=== PATIENT | male | born 1995 | race Caucasian/White ===

== ENCOUNTER 2021-06-25 15:16 | Emergency (ER) | payer BC, SELFPAY ==
[2021-06-25 15:19] VITALS: BP 112/68; PULSE 80; RESP 16; TEMP 36.7; O2SAT 98; BMI 23.6
--- NOTE | 2021-06-25 15:36 | ED.MALEGU ---
HPI - Male Genitourinary General Chief complaint: Urogenital-Male Stated complaint: possible STD Time Seen by Provider: 06/25/21 15:25 Source: patient Mode of arrival: ambulatory Limitations: no limitations History of Present Illness HPI Narrative: 25-year-old male presents to the ER for evaluation of painful urination intermittently for the last 1 month. He also reports subjective fevers and hot flushes at home. He denies any penile discharge, testicular pain, abdominal pain, nausea, vomiting. He is sexually active with both men and women and is concerned about possible STI. He has history of chlamydia last year but had significant penile discharge at that time. He denies any hematuria or other urinary symptoms. He states the burning upon urination would occur for couple of days and then go away for a couple of days so he put off being evaluated. When it returned he decided come to the ER today for further evaluation. MD Complaint: dysuria Onset (ago): month(s) (1) Duration: intermittent Location: penis Severity: mild Severity scale (1-10): 3 Quality: burning Relieving factors: none Exacerbating factors: urination Context: new sexual partner Associated symptoms: Reports dysuria Related Data Sexually active: Yes Previous Rx's Medication Instructions Recorded doxycycline hyclate 100 mg tablet 100 mg PO BID #14 tab 06/25/21 Allergies Allergy/AdvReac Type Severity Reaction Status Date / Time No Known Allergies Allergy Verified 06/25/21 15:19 Review of Systems Review of Systems: Constitutional: + Fever (subjective), No Chills ENT/Mouth: No sore throat Cardiovascular: No Chest Pain, No SOB Gastrointestinal: No Nausea, No Vomiting, No abdominal Pain Genitourinary: + Dysuria, No Urinary Frequency, No Hematuria, No penile discharge Musculoskeletal: No joint pain, No Myalgias Skin: No Skin Lesions, No rash Psych: + Anxiety/Panic Heme/Lymph: No Lymphadenopathy PMFSH Social History Social History Advance Directives: No Advance Directives Information Provided: No Physical Exam Vital Signs: Vital Signs: Last Vital Signs Temp 98.0 F 06/25/21 15:19 Pulse 80 06/25/21 15:19 Resp 16 06/25/21 15:19 BP 112/68 06/25/21 15:19 Pulse Ox 98 06/25/21 15:19 BMI result Body Mass Index 23.6 Appearance: Alert. Oriented X3. No acute distress. HEENT: normal inspection CVS: Normal heart rate and rhythm. Pulses normal. Respiratory: No respiratory distress. ABD: Soft, nontender nondistended. : Normal inspection of the external genitalia. Nose testicular or scrotal tenderness. No palpable testicular masses palpable. No penile lesions. Circumcised penis with easily retractable foreskin. No discharge at the urethral meatus. Skin: Skin warm and dry. Normal skin color. Normal skin turgor. No rashes. Extremities: Normal inspection x4, normal range of motion. Neuro: Oriented X 3. Grossly normal, nonfocal Course Course Course Narrative: 25-year-old bisexual male presents to the ER for evaluation of intermittent dysuria and hot flashes for the last 1 month. He has concern for STI. He has a history of chlamydia last year. He denies any penile discharge. He has no fever in triage. Has not taken his temperatures at home. He has no other systemic signs of infection. Will test and treat for possible gonorrhea and chlamydia. Will send urinalysis for possible UTI. Reevaluation(s) Reevaluation #1: Urinalysis is negative. Will complete course of STI treatment with 1 week of doxycycline. Patient has been counseled and encouraged follow-up with [facility] for further STI testing. Stable for [place] home. [facility] - Male Genitourinary Lab Data Labs: Lab Results 06/25/21 Range/Units 15:40 Urine Color YELLOW Urine Appearance CLEAR Urine pH 6.5 (5.0-8.0) Ur Specific [place] <= 1.005 (1.005-1.025) Urine Protein NEG (NEG-TRACE) MG/DL Urine Glucose (UA) NEG (NEG) MG/DL Urine Ketones NEG (NEG) MG/DL Urine Blood NEG (NEG) Urine Nitrite NEG (NEG) Ur Leukocyte Esterase NEG (NEG) Critical Care Time Critical Care Time Critical Care Time: No Discharge Plan Discharge Clinical Impression: Dysuria Patient Disposition: Home, Self-Care Instructions: Sexually Transmitted Diseases (ED), Dysuria (ED) Additional Instructions: Your urinalysis today was normal. No signs of a urinary tract infection. Your treated for possible gonorrhea and chlamydia. These tests were sent to the lab and if either of them are positive we will call you. Take the prescribed antibiotic for the next 1 week to complete the treatment. Do not go in the direct sunlight on this antibiotic, aching give you a rash. Make sure to wear sunscreen if he have any sun exposure. Recommend following up with the [facility] for additional STI testing. Follow-up with your primary care doctor if symptoms persist despite treatment. Prescriptions: New doxycycline hyclate 100 mg tablet 100 mg PO BID Qty: 14 0RF Interventions: ED Discharge Assessment Last Done: 06/25/21 16:06 Discharge Date/Time: 06/25/21 16:08
[2021-06-25 15:51] LABS: Appearance Urine CLEAR; Color Urine YELLOW; Glucose Urine UA NEG (NEG); Leukocyte Esterase Urine NEG (NEG); Nitrite Urine NEG (NEG); PH 6.5 (5.0-8.0); Specific Gravity - Urine <= 1.005 (1.005-1.025); Urine Blood NEG (NEG); Urine Ketones NEG (NEG); Urine Protein NEG (NEG-TRACE)
[2021-06-25] MEDS: Azithromycin 500 MG TABLET 1000 MG PO (15:56)
[2021-06-25] MEDS: cefTRIAXone sodium 500 MG, Lidocaine HCl 1 % MPF 1 ML IM (15:57)
[2021-06-26 02:21] LABS: CT PCR DETECTED (Not Detect.); NG PCR NOT DETECTED (Not Detect.)
== END 2021-06-25 16:08 | disposition home or self-care (01) ==
PROVIDERS: Physician Assistant; Emergency Provider Emergency Medicine Emergency Medical Services
DX: R30.0 Dysuria (principal); R50.9 Fever, unspecified; Z20.2 Contact with and (suspected) exposure to infections with a predominantly sexual mode of transmission; Z20.822 Contact with and (suspected) exposure to COVID-19; Z79.899 Other long term (current) drug therapy
CPT/HCPCS: 81003; 87491; 87591; 96372; 99283; 99284; J0696